=== PATIENT | female | born 1980 | race Caucasian/White ===

== ENCOUNTER 2018-02-12 12:59 | Emergency (ER) | payer OTHER, SELFPAY ==
[2018-02-12] MEDS ORDERED: Ketorolac Tromethamine 30 MG/ML VIAL ONE (13:18)
--- NOTE | 2018-02-12 13:37 | RAD ---
LEFT ANKLE 3 VIEWS: Date: 02/12/18 HISTORY: Injury, left ankle pain. FINDINGS/IMPRESSION: Comparison made with exam of 03/17/12. The ankle mortise is maintained. A tiny bone density is seen inferior to the medial malleolus, not de finitely seen on 03/17/12, suspicious for an avulsion fracture. Posterior and plantar calcaneal spurs are present. POS: [facility]
== END 2018-02-12 14:24 | disposition home or self-care (01) ==
LOC: ERS 12:59
DX: S93.402A Sprain of unspecified ligament of left ankle, initial encounter (principal); F41.9 Anxiety disorder, unspecified; F32.9 Major depressive disorder, single episode, unspecified; M06.9 Rheumatoid arthritis, unspecified; X50.1XXA Overexertion from prolonged static or awkward postures, initial encounter
CPT/HCPCS: 96372; J1885

== ENCOUNTER 2025-03-31 00:18 | Inpatient (IN) | payer OTHER ==
[2025-03-31 00:34] LABS: #Basophils 0.05 10x3/uL (0.0-0.2); #Eosinophils 0.16 10x3/uL (0.0-0.7); #Monocytes 0.83 10x3/uL (0.11-0.59); #Neutrophils 5.41 10x3/uL (1.40-6.50); %Basophils 0.5 % (0.0-1.0); %Eosinophils 1.7 % (0.0-10.0); %Lymphocytes 30.7 % (21.0-51.0); %Monocytes 8.9 % (0.0-10.0); %Neutrophils 58.0 % (42.0-75.0); Hematocrit 36.5 % (36.0-47.0); Hemoglobin 12.6 g/dL (12.0-16.0); Mean Corpuscular Hemoglobin 28.9 pg (27.0-31.0); Mean Corpuscular Volume 83.7 fL (78.0-98.0); Platelet Count 339 10x3/uL (130-400); Red Blood Cell (RBC) Count 4.36 mill/uL (4.20-5.40); White Blood Cell (WBC) Count 9.33 10x3/uL (4.8-10.8)
[2025-03-31 00:48] LABS: ALT (SGPT) 15 U/L (Less than 34); AST (SGOT) 14 U/L (11-34); Albumin 3.2 g/dL (3.1-4.5); Alkaline Phosphatase 78 U/L (40-110); Anion Gap 14 mmol/L (10-20); BUN (Urea Nitrogen) 15 mg/dL (7.0-18.7); Bilirubin, Total 0.2 mg/dL (0.3-1.2); Calc. Creatinine Clearance 0 mL/min (70-130); Calcium 8.7 mg/dL (7.8-10.44); Carbon Dioxide 23 mmol/L (22-29); Chloride 103 mmol/L (98-107); Globulin 3.9 g/dL (2.4-3.5); Glucose 107 mg/dL (70-105); Potassium 3.7 mmol/L (3.5-5.1); Sodium 136 mmol/L (136-145)
[2025-03-31 00:50] LABS: INR-International Normal Ratio 0.9; Prothrombin Time 12.4 sec (12.0-14.7)
[2025-03-31 00:51] LABS: PTT 29.9 sec (22.9-36.1); Troponin I 0.014 ng/mL (< 0.028)
[2025-03-31] MEDS ORDERED: Tenecteplase 50 MG ONE (00:52)
[2025-03-31] MEDS ORDERED: niCARdipine 25 MG in Sodium Chloride 0.9% 250 ML 250 ML IVPB PRN (02:18)
[2025-03-31] MEDS ORDERED: Albuterol 2.5 MG (3 mL) NEB NEB PRN (02:46)
[2025-03-31 03:29] VITALS: BMI 25.5
[2025-03-31] MEDS: NO ANTITHROMBOTICS FS SCH (04:44)
[2025-03-31] MEDS ORDERED: Iopamidol-370 76% 500 ML MDV (1 ML CHARGE) ONE (14:09)
[2025-03-31 14:27] VITALS: BMI 25.5
[2025-03-31] MEDS: hydrALAZINE 20 MG/ML VIAL SLOW IVP PRN (15:43)
[2025-03-31] MEDS: Cyclobenzaprine 10 MG TAB PO SCH (20:09)
[2025-03-31] MEDS: Ondansetron PF 4 MG/2 ML Vial IVP PRN (20:09)
[2025-03-31] MEDS: diphenhydrAMINE 25 MG CAP PO PRN (20:28)
[2025-04-01] MEDS: Acetaminophen 325 MG TAB PO PRN (05:02)
[2025-04-01 05:26] LABS: #Basophils 0.04 10x3/uL (0.0-0.2); #Eosinophils Less than 0.03 10x3/uL (0.0-0.7); #Monocytes 0.56 10x3/uL (0.11-0.59); #Neutrophils 9.53 10x3/uL (1.40-6.50); %Basophils 0.3 % (0.0-1.0); %Eosinophils 0.2 % (0.0-10.0); %Lymphocytes 12.4 % (21.0-51.0); %Monocytes 4.8 % (0.0-10.0); %Neutrophils 82.1 % (42.0-75.0); Hematocrit 39.8 % (36.0-47.0); Hemoglobin 13.4 g/dL (12.0-16.0); Mean Corpuscular Hemoglobin 28.6 pg (27.0-31.0); Mean Corpuscular Volume 84.9 fL (78.0-98.0); Platelet Count 315 10x3/uL (130-400); Red Blood Cell (RBC) Count 4.69 mill/uL (4.20-5.40); White Blood Cell (WBC) Count 11.61 10x3/uL (4.8-10.8)
[2025-04-01 05:35] LABS: INR-International Normal Ratio 1.0; Prothrombin Time 13.5 sec (12.0-14.7)
[2025-04-01 05:36] LABS: PTT 28.0 sec (22.9-36.1)
[2025-04-01 05:38] LABS: D-Dimer Test 0.46 mcg/mL (0.27-0.43)
[2025-04-01 05:51] LABS: ALT (SGPT) 14 U/L (Less than 34); AST (SGOT) 14 U/L (11-34); Albumin 3.0 g/dL (3.1-4.5); Alkaline Phosphatase 81 U/L (40-110); Anion Gap 14 mmol/L (10-20); BUN (Urea Nitrogen) 9 mg/dL (7.0-18.7); Bilirubin, Total 0.4 mg/dL (0.3-1.2); Calc. Creatinine Clearance 160 mL/min (70-130); Calcium 8.8 mg/dL (7.8-10.44); Carbon Dioxide 23 mmol/L (22-29); Cardiac Risk 5.2 (Less than 4.5); Chloride 104 mmol/L (98-107); Cholesterol 260 mg/dl (< 200 Desired); Globulin 3.9 g/dL (2.4-3.5); Glucose 107 mg/dL (70-105); HDL Cholesterol 50 mg/dL (>60 Neg Risk); LDL Cholesterol, Calculated 179 mg/dL; Potassium 4.0 mmol/L (3.5-5.1); Sodium 137 mmol/L (136-145); Triglycerides 156 mg/dL (Less than 150)
[2025-04-01 15:30] VITALS: BP 136/90; TEMP 98.2
[2025-04-01] MEDS: Ezetimibe 10 MG TAB PO SCH (17:50)
[2025-04-04 13:22] LABS: EliA APS New Method **** NEW METHOD ****
== END 2025-04-01 18:07 | disposition home or self-care (01) | DRG 62 ==
LOC: ERS 00:18 → CCU 02:04 → 2SE 04-01 09:55
PROVIDERS: ADMIT Student in an Organized Health Care Education/Training Program; ATTEND Family Medicine
DX: G45.9 Transient cerebral ischemic attack, unspecified (principal); G81.94 Hemiplegia, unspecified affecting left nondominant side; R47.01 Aphasia; M19.90 Unspecified osteoarthritis, unspecified site; E78.5 Hyperlipidemia, unspecified; R29.718 NIHSS score 18; D10.39 Benign neoplasm of other parts of mouth; M79.7 Fibromyalgia; Z88.1 Allergy status to other antibiotic agents; Z88.8 Allergy status to other drugs, medicaments and biological substances; Z98.890 Other specified postprocedural states; Z79.899 Other long term (current) drug therapy; Z79.82 Long term (current) use of aspirin
CPT/HCPCS: 36415; 36416; 37195; 70450; 70496; 70498; 70551; 71045; 76999; 80053; 80061; 83036; 83090; 84484; 85025; 85300; 85303; 85306; 85307; 85598; 85610; 85730; 86147; 93005; 93306; 94760; J0360; J2270; J2405; J3101; J7120; Q9967